=== PATIENT | female | born 1935 | race Caucasian/White ===

== ENCOUNTER 2020-06-14 13:04 | Observation (INO) ==
[2020-06-14] MEDS ORDERED: Famotidine 20 MG/2 ML VIAL IVP ONE (13:32)
[2020-06-14] MEDS ORDERED: Ringers Solution, Lactated 1,000 ML IVC SCH ×2 (13:45→20:07)
[2020-06-14] MEDS ORDERED: Bupivacaine/EPI 1:200k 0.25%PF 10 ML VIAL INFILT ONE (14:51)
[2020-06-14] MEDS ORDERED: *HR* OxyCODONE Immed Rel 5 MG TABLET PO PRN ×3 (15:12→20:07)
[2020-06-14] MEDS ORDERED: Ondansetron 4 MG/2 ML VIAL IVP PRN ×2 (15:13→20:07)
[2020-06-14] MEDS ORDERED: *HR* Propofol 200 MG/20 ML VIAL IVP ONE (15:15)
[2020-06-14] MEDS ORDERED: *HR* FentaNYL (PF) 100 MCG/2 ML VIAL ONE (15:15)
[2020-06-14] MEDS ORDERED: Lidocaine -MPF 2% 2 ML VIAL ONE (15:15)
[2020-06-14] MEDS ORDERED: Acetaminophen 325 MG TABLET PO PRN (15:17)
[2020-06-14] MEDS ORDERED: Ropivacaine/PF 0.5% 30 ML VIAL ONE (15:21)
[2020-06-14] MEDS ORDERED: CeFAZolin Syr 2,000MG/20 ML 2,000 MG/20 ML SYRINGE IVPB ONE (15:25)
[2020-06-14] MEDS ORDERED: *HR* PHENYLEPHRINE 1,000 MCG/10 ML SYRINGE IVP ONE (16:31)
[2020-06-14] MEDS ORDERED: Ondansetron 4 MG/2 ML VIAL IVP ONE ×2 (16:57→20:07)
[2020-06-14] MEDS ORDERED: carvediloL 6.25 MG TABLET PO SCH (17:00)
[2020-06-14] MEDS ORDERED: *HR* Meperidine 25 MG/ML SYRINGE IVP PRN (18:40)
[2020-06-15] MEDS ORDERED: CeFAZolin 2 GM/120 ML BAG IVPB SCH
[2020-06-15] MEDS: CeFAZolin 2 GM/120 ML BAG IVPB SCH ×2 (00:55→10:50)
[2020-06-15] MEDS: *HR* Enoxaparin 40 MG/0.4 ML SYRINGE SQ SCH (05:27)
[2020-06-15] MEDS ORDERED: Anastrozole 1 MG TABLET PO SCH (09:00)
[2020-06-15] MEDS ORDERED: *HR* Enoxaparin 40 MG/0.4 ML SYRINGE SQ SCH (09:00)
[2020-06-15] MEDS: Anastrozole 1 MG TABLET PO SCH (09:34)
[2020-06-15] MEDS: carvediloL 6.25 MG TABLET PO SCH ×2 (09:34→16:57)
[2020-06-15 17:54] LABS: Basophils % 0.3 %; Eosinophils % 0.1 %; Hematocrit 32.9 % (35.3-44.9); Hemoglobin 10.4 g/dL (11.5-15.4); Immature Granulocytes % 0.4 % (0-4); Lymphocytes # 4.1 K/mcL (0.6-4.6); Lymphocytes % 26.7 %; Mean Corpuscular HGB Conc 31.6 g/dL (31.6-35.5); Mean Corpuscular Hemoglobin 31.8 pg (28.0-33.3); Mean Corpuscular Volume 100.6 fL (83.0-100.0); Mean Platelet Volume 8.8 fL (9.4-12.4); Monocytes # 1.5 K/mcL (0.0-1.3); Monocytes % 9.6 %; Neutrophils # 9.7 K/mcL (1.6-8.9); Platelet Count 249 K/mcL (140-400); Red Blood Count 3.27 M/mcL (3.82-4.97); Segmented Neutrophils % 62.9 %
[2020-06-15 17:57] LABS: Basophils # 0.1 K/mcL (0.0-0.2); White Blood Count 15.4 K/mcL (4.3-11.1)
[2020-06-15 18:13] LABS: BUN/Creatinine Ratio 23 (6-26); Blood Urea Nitrogen 15 mg/dL (8-23); Calcium 9.1 mg/dL (8.6-10.3); Carbon Dioxide 27 mEq/L (23-29); Chloride 102 mEq/L (98-107); Glucose 108 mg/dL (70-105); Magnesium 1.6 mg/dL (1.6-2.6); Osmolality,Calculated 287 (280-300); Phosphorous 2.5 mg/dL (2.7-4.5); Potassium 3.7 mEq/L (3.5-5.1); Sodium 138 mEq/L (136-145); eGFR For African Americans > 60 (> 60); eGFR For Non-African Americans > 60 (> 60)
[2020-06-15 18:35] LABS: Bacteria,Urine Few per hpf (None-Few); Bilirubin,Urine Negative (Negative); Blood,Urine Negative (Negative); Clarity,Urine Turbid (Clear); Color,Urine Yellow (Yellow); Glucose,Urine (UA) Normal (Normal); Ketones,Urine Negative (Negative); Leukocyte Esterase,Urine Moderate (Negative); Mucus,Urine Few per lpf (None-Few); Nitrite,Urine Negative (Negative); PH,Urine 6.5 pH Units (5.0-8.0); Protein,Urine Negative (Neg-Trace); RBC,Urine 0-3 per hpf (0-3); Specific Gravity,Urine 1.014 (1.010-1.025); Squamous Epithelial Cell,Urine Moderate per hpf (None-Few); Transitional Epi Cells,Urine Moderate per hpf (None-Few); Urobilinogen,Urine Normal (Normal); WBC,Urine 15-30 per hpf (0-3)
[2020-06-15] MEDS: cefTRIAXone 1,000 MG in Water for inj. (sterile) 10 ML IVP SCH (20:11)
[2020-06-15] MEDS: Acetaminophen 325 MG TABLET PO PRN (20:12)
[2020-06-16] MEDS: *HR* Enoxaparin 40 MG/0.4 ML SYRINGE SQ SCH (08:04)
[2020-06-16] MEDS: Anastrozole 1 MG TABLET PO SCH (08:05)
[2020-06-16] MEDS: carvediloL 6.25 MG TABLET PO SCH ×2 (08:05→17:34)
[2020-06-16] MEDS: cefTRIAXone 1,000 MG in Water for inj. (sterile) 10 ML IVP SCH (08:06)
[2020-06-16] MEDS: (Omega-3/Dha/Epa/Fish Oil [Fish Oil 1,000 Mg Softgel] PO SCH (08:06)
[2020-06-16] MEDS: Cefdinir 300 MG CAPSULE PO SCH (20:57)
[2020-06-16] MEDS: Acetaminophen 325 MG TABLET PO PRN (20:57)
[2020-06-17 06:30] LABS: Basophils % 0.4 %; Eosinophils # 0.1 K/mcL (0.0-0.6); Eosinophils % 1.1 %; Hematocrit 31.8 % (35.3-44.9); Hemoglobin 10.2 g/dL (11.5-15.4); Immature Granulocytes % 0.3 % (0-4); Lymphocytes # 3.4 K/mcL (0.6-4.6); Lymphocytes % 35.9 %; Mean Corpuscular HGB Conc 32.1 g/dL (31.6-35.5); Mean Corpuscular Hemoglobin 32.7 pg (28.0-33.3); Mean Corpuscular Volume 101.9 fL (83.0-100.0); Mean Platelet Volume 8.9 fL (9.4-12.4); Monocytes # 0.6 K/mcL (0.0-1.3); Monocytes % 6.7 %; Neutrophils # 5.2 K/mcL (1.6-8.9); Platelet Count 227 K/mcL (140-400); Red Blood Count 3.12 M/mcL (3.82-4.97); Red Cell Distribution Width 13.9 % (11.5-14.5); Segmented Neutrophils % 55.6 %; White Blood Count 9.4 K/mcL (4.3-11.1)
[2020-06-17] MEDS: *HR* Enoxaparin 40 MG/0.4 ML SYRINGE SQ SCH (07:13)
[2020-06-17] MEDS: carvediloL 6.25 MG TABLET PO SCH ×2 (07:47→16:27)
[2020-06-17] MEDS: Cefdinir 300 MG CAPSULE PO SCH ×2 (07:47→19:56)
[2020-06-17] MEDS: Anastrozole 1 MG TABLET PO SCH (07:47)
[2020-06-17] MEDS: (Omega-3/Dha/Epa/Fish Oil [Fish Oil 1,000 Mg Softgel] PO SCH (07:48)
[2020-06-18] MEDS: *HR* Enoxaparin 40 MG/0.4 ML SYRINGE SQ SCH (06:11)
[2020-06-18] MEDS: carvediloL 6.25 MG TABLET PO SCH ×2 (08:41→16:12)
[2020-06-18] MEDS: Cefdinir 300 MG CAPSULE PO SCH ×2 (08:42→20:25)
[2020-06-18] MEDS: (Omega-3/Dha/Epa/Fish Oil [Fish Oil 1,000 Mg Softgel] PO SCH (08:42)
[2020-06-18] MEDS: Anastrozole 1 MG TABLET PO SCH (08:42)
[2020-06-19] MEDS: *HR* Enoxaparin 40 MG/0.4 ML SYRINGE SQ SCH (05:49)
[2020-06-19] MEDS: (Omega-3/Dha/Epa/Fish Oil [Fish Oil 1,000 Mg Softgel] PO SCH (10:01)
[2020-06-19] MEDS: Cefdinir 300 MG CAPSULE PO SCH ×2 (10:04→20:49)
[2020-06-19] MEDS: Anastrozole 1 MG TABLET PO SCH (10:05)
[2020-06-19] MEDS: carvediloL 6.25 MG TABLET PO SCH ×2 (10:05→19:08)
[2020-06-20] MEDS: *HR* Enoxaparin 40 MG/0.4 ML SYRINGE SQ SCH (05:45)
[2020-06-20 08:50] VITALS: BP 133/76
[2020-06-20] MEDS: Cefdinir 300 MG CAPSULE PO SCH (09:09)
[2020-06-20] MEDS: carvediloL 6.25 MG TABLET PO SCH (09:10)
[2020-06-20] MEDS: Anastrozole 1 MG TABLET PO SCH (09:10)
== END 2020-06-20 16:30 ==
LOC: SAMDAY 13:04 → 3NENU 13:04 → 3ANU 06-19 15:11
PROVIDERS: ADMIT Podiatrist; ATTEND Podiatrist